=== PATIENT | female | born 1995 | race Caucasian/White ===

== ENCOUNTER 2017-01-12 23:44 | Emergency (ER) | payer SELFPAY ==
[~2017-01-12] VITALS: Ht 160 cm; Wt 75.0 kg
[~2017-01-12 23:44] MED LIST: AMOX500C PO; ASCO500 PO; DEXT5LOZ3 MT; HYDR7.5S PO; LIDO2SOL SS; PRED20 PO; PROM6.257 PO; ZITH250T PO
[2017-01-12 23:51] VITALS: BP 132/62; PULSE 88; RESP 12; TEMP 98.1; O2SAT 100
[2017-01-13] MEDS ORDERED: AMOXICILLIN/CLAVULANATE K 875 MG TAB PO ONE (00:30)
[2017-01-13] MEDS ORDERED: NEOMYCIN/POLYMYXIN/HYDROCORT OTIC SOLN 10 ML BTL RIGHT EAR ONE (00:30)
[2017-01-13] MEDS ORDERED: AUGM875T PO (00:31)
[2017-01-13] MEDS ORDERED: CORT1SOL RIGHT EAR (00:31)
--- NOTE | 2017-01-13 00:32 | PD ---
HPI Chief Complaint: ENT Complaint Time Seen by Provider: 00:22 Travel History International Travel<30 days: No Contact w/Intl Traveler<30days: No Traveled to known affect area: No History of Present Illness HPI The patient is a 21-year-old female who complains of right ear pain and ear being clots since 7:30 today. She denies any fever or drainage. She denies any TMJ pain or dental pain. PFSH Past Medical History Medical History: Denies Significant Hx Diminished Hearing: No Tetanus Vaccination: > 5 Years ?: Not LMP: 1.5 weeks ago Past Surgical History Surgical History: No Previous Surgery Social History Alcohol Use: Yes (occ) Tobacco Use: No Substance Use: No Allergies-Medications (Allergen,Severity, Reaction): Coded Allergies: No Known Allergies (Verified , 08/10/15) Reported Meds & Prescriptions Reported Meds & Active Scripts Active Cortisporin HC Otic Drops (Xvdnptgp-Ilbsionij-XK Otic Drops) 3.5-10,000-1 Mg- Units-% Soln 4 Drop RIGHT EAR QID Augmentin (Amoxicillin-Clavulanate) 875-125 mg Tab 875 Mg PO BID 10 Days not for use in CrCl <30 ml/min. Lidocaine Viscous (Lidocaine HCl) 2 % Jess 5 Ml SS Q4H PRN SWISH AND SPIT Hydrocodone/Acetaminophen 7.5 mg/325 mg/15 ml 7.5 mg/325 mg/15 ml Jess 5 Ml PO Q4H PRN Reported Cepacol Sore Throat & Cou (Dextromethorphan-Benzocaine) 1 Stephanie Stephanie 1 Stephanie MT DIRECTED PRN Vitamin C 500 Mg Tab (Ascorbic Acid) 500 Mg Tab 500 Mg PO DAILY Deltasone 20 Mg Tab (Prednisone) 20 Mg Tab 20 Mg PO BID Zithromax Z-Ranjit (Azithromycin) 250 Mg Tab 250 Mg PO DIRECTED 500 MG (2 TABLETS) PO ON DAY 1, THEN 250 MG (1 TABLET) PO ON DAYS 2 TO 5. Phenergan W/Codeine (Promethazine W/Codeine) 6.25-10 mg/5 ml Ml 5 Ml PO Q6H PRN Trimox 500 Mg Cap (Amoxicillin) 500 Mg Cap 500 Mg PO Q8HR Review of Systems Except as stated in HPI: all other systems reviewed are Neg Physical Exam Narrative GENERAL: Well-nourished, well-developed patient in slight apparent distress with her right ear pain. Her vital signs are normal. SKIN: Focused skin assessment warm/dry. HEAD: Normocephalic. EYES: No scleral icterus. No injection or drainage. NECK: Supple, trachea midline. No JVD or lymphadenopathy. CARDIOVASCULAR: Regular rate and rhythm without murmurs, gallops, or rubs. RESPIRATORY: Breath sounds equal bilaterally. No accessory muscle use. Lungs clear to auscultation bilaterally. GASTROINTESTINAL: Abdomen soft, non-tender, nondistended. MUSCULOSKELETAL: No cyanosis, or edema. BACK: Nontender without obvious deformity. No CVA tenderness. ENT: The right canal is poorly seen due to wax in the year but the eardrum is partially seen and appears red and slightly distorted. The left tympanic membrane and canal are normal. No TMJ tenderness is present. DENTAL: No loose or chipped teeth. No malocclusion. There are no tender teeth , no evidence of dental infection. Data Data Last Documented VS Vital Signs Date Time Temp Pulse Resp B/P Pulse Ox O2 Delivery O2 Flow Rate FiO2 01/12/17 23:51 98.1 88 12 132/62 100 Orders Amoxicil-Clavulanate (Augmentin) (01/13/17 00:30) Ear Irrigation (01/13/17 00:25) Yvmsgnqx-Hlsmihwd-Cz Otic Soln (Cortispo (01/13/17 00:30) [facility] Medical Decision Making Medical Screen Exam Complete: Yes Emergency Medical Condition: Yes Medical Record Reviewed: Yes Differential Diagnosis Right otitis externa, right otitis media, TMJ pain, dental pain Narrative Course The patient appears to have both right otitis externa and right otitis media. Plan: The patient be given Augmentin 875 twice daily for 10 days as well as Cortisporin otic drops. Diagnosis Primary Impression: Acute right otitis media Additional Impression: Right otitis externa Additional Instructions: The eardrops are 3-4 drops in the right ear 4 times daily. The antibiotic is one tablet twice daily for 10 days. Follow-up with your primary care physician next week. Med/Other Pt SpecificInfo: Prescription(s) given Scripts Dwntfogo-Wiktmysxh-KU Otic Drops (Cortisporin HC Otic Drops)3.5-10,000-1 Mg- Units-% Soln4 Drop RIGHT EAR QID #1 BOTTLE Ref 1 Prov:Brad Mayo MD 01/13/17 Amoxicillin-Clavulanate (Augmentin)875-125 mg Qst295 Mg PO BID 10 Days Ref 0 not for use in CrCl <30 ml/min. Prov:Brad Mayo MD 01/13/17 Disposition: 01 DISCHARGE HOME Condition: Stable Brad Mayo MD January 13, 2017 00:32
== END 2017-01-13 00:59 | disposition home or self-care (01) ==
LOC: PHED 23:44
DX: H66.91 Otitis media, unspecified, right ear (principal); H60.91 Unspecified otitis externa, right ear
CPT/HCPCS: 99282

== ENCOUNTER 2017-08-23 17:39 | Emergency (ER) | payer SELFPAY ==
[~2017-08-23] VITALS: Ht 160 cm; Wt 70.5 kg
[~2017-08-23 17:39] MED LIST changes: -AMOX500C PO; -ASCO500 PO; +AUGM875T PO; +CORT1SOL RIGHT EAR; -DEXT5LOZ3 MT; -HYDR7.5S PO; -LIDO2SOL SS; -PRED20 PO; -PROM6.257 PO; -ZITH250T PO
[2017-08-23 17:41] VITALS: BP 169/81; PULSE 94; RESP 14; TEMP 99.1; O2SAT 99
--- NOTE | 2017-08-23 18:16 | RADRPT ---
EXAM DATE/TIME: 08/23/2017 17:59 [facility] COMPARISON: No previous studies available for comparison. INDICATIONS : Short of breath. MEDICAL HISTORY : None. SURGICAL HISTORY : None. ENCOUNTER: Initial ACUITY: 2 days PAIN SCORE: 0/10 LOCATION: Bilateral chest FINDINGS: PA and lateral views of the chest demonstrate the lungs to be symmetrically aerated without evidence of mass, infiltrate or effusion. No evidence of pneumothorax. The cardiomediastinal contours are un remarkable. Osseous structures are intact. CONCLUSION: No acute cardiopulmonary disease. Krystian Denton MD on August 23, 2017 at 18:13 Board Certified Radiologist. This report was verified electronically.
[2017-08-23 18:42] LABS: AUTOMATED NEUTROPHIL # 8.4 TH/MM3 (1.8-7.7); BASOPHIL % 0.2 % (0.0-2.0); EOSINOPHIL # 0.3 TH/MM3 (0-0.4); EOSINOPHIL % 2.4 % (0.0-4.0); HEMATOCRIT 39.2 % (35.0-46.0); HEMOGLOBIN 13.6 GM/DL (11.6-15.3); LYMPH % 30.2 % (9.0-44.0); LYMPHOCYTE # 4.1 TH/MM3 (1.0-4.8); MEAN CELL VOLUME 86.7 FL (80.0-100.0); MEAN CORPUSCULAR HGB CONC 34.6 % (32.0-36.0); MEAN PLATELET VOLUME 8.3 FL (7.0-11.0); MONO % 4.9 % (0.0-8.0); MONOCYTE # 0.7 TH/MM3 (0-0.9); NEUT % 62.3 % (16.0-70.0); PLATELET COUNT 315 TH/MM3 (150-450); RED BLOOD COUNT 4.53 MIL/MM3 (4.00-5.30); RED CELL DISTRIBUTION WIDTH 13.3 % (11.6-17.2); WHITE BLOOD COUNT 13.5 TH/MM3 (4.0-11.0)
[2017-08-23 18:56] LABS: BICARBONATE 26.9 MEQ/L (21.0-32.0); BLOOD UREA NITROGEN 9 MG/DL (7-18); CALCIUM 8.8 MG/DL (8.5-10.1); CHLORIDE 105 MEQ/L (98-107); CREATININE 0.88 MG/DL (0.50-1.00); GLOMERULAR FILTRATION RATE 82 ML/MIN (>89); GLUCOSE,RANDOM 91 MG/DL (74-106); MAGNESIUM 2.1 MG/DL (1.5-2.5); SODIUM (NA) 137 MEQ/L (136-145)
[2017-08-23 19:01] LABS: TROPONIN I LESS THAN 0.02 NG/ML (0.02-0.05)
[2017-08-23 20:13] VITALS: BP 151/76; PULSE 71; RESP 18; O2SAT 99
--- NOTE | 2017-08-23 21:58 | RADRPT ---
EXAM DATE/TIME: 08/23/2017 21:13 [facility] COMPARISON: No previous studies available for comparison. INDICATIONS : Dizziness. RADIATION DOSE: 30.73 CTDIvol (mGy) MEDICAL HISTORY : None SURGICAL HISTORY : None. ENCOUNTER: Initial ACUITY: 1 day PAIN SCALE: 0/10 LOCATION: cranial TECHNIQUE: Multiple contiguous axial images were obtained of the head. Using automated exposure control and adj ustment of the mA and/or kV according to patient size, radiation dose was kept as low as reasonably a chievable to obtain optimal diagnostic quality images. DICOM format image data is available electro nically for review and comparison. FINDINGS: CEREBRUM: The ventricles are normal for age. No evidence of midline shift, mass lesion, hemorrhage or acute in farction. No extra-axial fluid collections are seen. POSTERIOR FOSSA: The cerebellum and brainstem are intact. The 4th ventricle is midline. The cerebellopontine angle i s unremarkable. EXTRACRANIAL: The visualized portion of the orbits is intact. SKULL: The calvaria is intact. No evidence of skull fracture. CONCLUSION: Negative noncontrast CT brain. Krystian Denton MD on August 23, 2017 at 21:55 Board Certified Radiologist. This report was verified electronically.
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
--- NOTE | 2017-08-24 13:16 | EKG ---
Date Performed: 08/23/2017 Time Performed: 19:12:01 PTAGE: 22 years EKG: Sinus rhythm WITH SHORT OH INTERVAL BORDERLINE ECG NO PREVIOUS TRACING DOCTOR: Dion Stearns Interpretating Date/Time 08/24/2017 13:15:44
== END 2017-08-23 22:54 | disposition home or self-care (01) ==
LOC: NEPD 17:39
DX: R00.2 Palpitations (principal); F41.9 Anxiety disorder, unspecified; R06.02 Shortness of breath; F12.90 Cannabis use, unspecified, uncomplicated
CPT/HCPCS: 70450; 71020; 80048; 82550; 82552; 83735; 84484; 84703; 85025; 85379; 93005; 99285